=== PATIENT | male | born 1970 | race Two or more races ===

== ENCOUNTER 2019-11-23 18:14 | Emergency (ER) | payer SELFPAY ==
[~2019-11-23] VITALS: Ht 170.2 cm; Wt 81.6 kg
[2019-11-23 19:19] LABS: Basophils # (auto) 0 10 ^3/uL (0-0.2); Basophils % (auto) 0.6 % (0.0-2.0); Eosinophils # (auto) 0.1 10 ^3/uL (0-0.8); Eosinophils % (auto) 0.9 % (0.0-7.0); Hematocrit 43.8 % (41.0-53.0); Hemoglobin 15.2 g/dL (13.5-17.5); Lymphocytes # (auto) 1.7 10 ^3/uL (0.4-5.4); Lymphocytes % (auto) 27.9 % (10.0-50.0); Mean Corpuscular Hemoglobin 30.9 pg (28.0-32.0); Mean Corpuscular Hgb Conc. 34.6 g/dL (32.0-36.0); Mean Corpuscular Volume 89.1 fL (80.0-100.0); Monocytes # (auto) 0.3 10 ^3/uL (0-1.3); Monocytes % (auto) 5.7 % (0.0-12.0); Neutrophils # (auto) 3.9 10 ^3/uL (1.6-8.6); Neutrophils % (auto) 64.9 % (37.0-80.0); Nucleated Red Blood Cells % 0.1 %; Platelet Count (auto) 254 10^3/uL (140-450); Red Blood Cells 4.91 10^6/uL (4.5-5.90); Red Cell Distribution Width 13.9 % (11.8-14.3); White Blood Cell 5.9 10^3/uL (4.4-10.8)
[2019-11-23 19:40] LABS: INR 1.01 (0.9-1.15); Partial Thromboplastin Time 25.4 sec (23.0-31.2)
[2019-11-23 19:54] LABS: Urine Bacteria FEW /hpf (None Seen); Urine Blood Negative /uL (Negative); Urine Mucus FEW (None Seen); Urine WBC <1 /hpf (0 - 3)
[2019-11-23] MEDS ORDERED: MECLIZINE HCL 25 MG TAB PO ONE (20:00)
[2019-11-23] MEDS ORDERED: SODIUM CHLORIDE 0.9% 1,000 ML IV ONE (20:00)
[2019-11-23] MEDS ORDERED: AMOXICILLIN/CLAVUL 875 MG TAB PO ONE (20:00)
[2019-11-23] MEDS ORDERED: ONDANSETRON HCL 4 MG/2 ML VIAL IV ONE (20:15)
[2019-11-23] MEDS ORDERED: ACETAMINOPHEN 325 MG TAB PO ONE (20:15)
[2019-11-23 20:17] LABS: Albumin 4.2 g/dL (3.4-5.0); Anion Gap 6 (5-15); Blood Urea Nitrogen 14 mg/dL (7-18); Calcium 8.1 mg/dL (8.5-10.1); Carbon Dioxide 26 mmol/L (21-32); Chloride 105 mmol/L (98-107); Glucose 140 mg/dL (74-106); Magnesium 2.6 mg/dL (1.6-2.6); Potassium 3.7 mmol/L (3.5-5.1); Sodium 137 mmol/L (136-145)
[2019-11-23 20:23] LABS: Alanine Aminotransferase 24 U/L (16-61); Alkaline Phosphatase 73 U/L (45-117); Aspartate Aminotransferase 12 U/L (15-37); BUN/Creatinine Ratio 15.1; Bilirubin, Total 0.5 mg/dL (0.2-1.0); GFR African American 111 mL/min; GFR Non-African American 91 mL/min; Total Protein 7.6 g/dL (6.4-8.2)
[2019-11-23 22:20] VITALS: BP 140/78
== END 2019-11-23 22:22 | disposition home or self-care (01) ==
LOC: ER 18:14
DX: H66.91 Otitis media, unspecified, right ear (principal); R51 Headache; R42 Dizziness and giddiness
CPT/HCPCS: 36415; 70450; 71046; 80053; 81001; 83735; 84484; 85025; 85610; 85730; 93005; 96361; 96374; 99285; J2405; J7030; J8597; 96360

== ENCOUNTER 2020-11-20 19:12 | Emergency (ER) | payer MEDICAID ==
[~2020-11-20] VITALS: Ht 167.6 cm; Wt 83.9 kg
[2020-11-20 20:49] VITALS: BP 120/89
== END 2020-11-20 21:22 | disposition home or self-care (01) ==
LOC: ER 19:14
DX: H92.01 Otalgia, right ear (principal)